=== PATIENT | female | born 1990 | race Caucasian/White ===

== ENCOUNTER 2020-07-02 00:24 | Emergency (ER) | payer OTHER ==
[~2020-07-02] VITALS: Ht 162.6 cm; Wt 77.1 kg
[2020-07-02] MEDS ORDERED: ONDANSETRON HCL/PF 4 MG/2 ML VIAL ONE (00:36)
[2020-07-02] MEDS ORDERED: FAMOTIDINE/PF INJ 20 MG/2 ML VIAL IV ONE ×2 (00:37→01:00)
--- NOTE | 2020-07-02 00:41 | NUR ---
PT AAOX4. BIBRA 79 FOR ETOH. PER RA PT ATE AN EDIBLE AND TOOK 8 SHOTS OF MARTINI. PLACED IN BED 11 ON MONITOR AND PULSE OX. MD AT BEDSIDE FOR EVAL. AWAIITNG ORDERS.
[2020-07-02] MEDS ORDERED: IV NS 0.9% 1,000 ML BAG IV ONE (01:00)
[2020-07-02] MEDS ORDERED: ONDANSETRON HCL/PF 4 MG/2 ML VIAL IVP ONE (01:00)
[2020-07-02] MEDS ORDERED: ONDA4TAB5 PO (04:35)
--- NOTE | 2020-07-02 04:44 | NUR ---
PT AAOX4. ABLE TO AMBULATE WITH STEADY GAIT. PARTNER CALLED TO [facility] PT.
--- NOTE | 2020-07-02 04:47 | NUR ---
IV removed. Catheter intact and site benign. Pressure and 4x4 applied to site. No bleeding noted.
[2020-07-02 04:55] VITALS: BP 111/68
--- NOTE | 2020-07-02 04:55 | NUR ---
Patient discharged to home in stable condition. Written and verbal after care instructions given. Patient verbalizes understanding of instruction and RX. Pt ambulated out of ED. VSS. Picked up by partner.
== END 2020-07-02 04:55 | disposition home or self-care (01) ==
LOC: ER 00:28
DX: T51.91XA Toxic effect of unspecified alcohol, accidental (unintentional), initial encounter (principal); R11.2 Nausea with vomiting, unspecified; M79.7 Fibromyalgia; F41.9 Anxiety disorder, unspecified; F32.9 Major depressive disorder, single episode, unspecified; Z98.890 Other specified postprocedural states; Y92.89 Other specified places as the place of occurrence of the external cause
CPT/HCPCS: 96361; 96374; 96375; 99284; J2405; J3490; J7030